=== PATIENT | female | born 1975 | race American Indian/Alaskan Native ===

== ENCOUNTER 2020-06-24 14:14 | Inpatient (IN) | payer OTHER, SELFPAY ==
--- NOTE | 2020-06-24 16:23 | Emergency Department Report ---
ED Shortness of Breath HPI - General Chief Complaint: Dyspnea/Respdistress Stated Complaint: HERACLIO Time Seen by Provider: 06/24/20 16:21 Source: patient Mode of arrival: Ambulatory Limitations: No Limitations - History of Present Illness Initial Comments: This is a 45-year-old female who ran out of her Lasix. She states that she has been short of breath on exertion. She has experienced PND and orthopnea. He does not complain of chest pain. She denies fever chills or significant cough. She denies chest pain. She has had progressive symptoms over the last few days. Apparently the patient has a nonischemic cardiomyopathy. I do not think she britt s had recent cardiology follow-up. According to the records cardiology recommended LifeVest placement however the patient refused to stay in the hospital thereof. Judging from her previous EF she would be a candidate for an AICD. Previous hospitalization in 2019 indicated: Hospital course: 44-year-old female patient with no significant past medical history , not on any medications was admitted through emergency room with worsening shortness of breath of one-week duration, patient admitted, appropriately managed, work-up is consistent with cardiomyopathy, EF of 15 to 20%, cardiology evaluated, started ischemia work-up, had stress test which was abnormal with ischemia, scheduled for heart cath next day. Cardiac cath showed normal coronary arteries. Cardiology recommended LifeVest placement however patient refused to stay in the hospital to wait for LifeVest. Cardiology recommended to discharge patient and to follow-up outpatient for LifeVest placement as a bridge to to possible eventual ICD. Patient was then discharged home in stable condition with outpatient follow-up. 02/17; patient's shortness of breath significantly improved Optimizing heart failure medications, cardiology planning stress test when stable Hypokalemia, KCl given 02/18; patient feels slightly better, electrolytes normal range Hypotension, adjust antihypertensives. 02/19; scheduled for stress test tomorrow, n.p.o. midnight If negative and patient stable patient may be discharged home 02/20;s/p stress test, abnormal, recommend heart cath tomorrow 02/21: Coronary angiogram showed normal coronaries, patient refused to stay in the hospital for LifeVest. Discharge home with outpatient follow-up. Discharge diagnosis and management: --Cardiomyopathy; EF 15 to 20% New onset CHF with systolic dysfunction, Stress test abnormal, cardiac cath showed normal coronaries Cardiology recommended LifeVest but patient refused to stay in the hospital Recommended to further follow-up as an outpatient --Hypotension; blood pressures in the lower range Closely monitored, adjusted antihypertensives --Acute systolic congestive heart failure /cardiomyopathy ejection fraction 15 to 20%, unknown etiology Continue IV diuretics, beta-blockers, LAUREN inhibitors, Discontinued spironolactone for hyperkalemia Managed with input output monitoring, Low-sodium diet, fluid restriction Cardiology was following --Hypokalemia; replaced - Related Data Previous Rx's Medication Instructions Recorded Last Taken Type Aspirin EC [Halfprin EC] 81 mg PO QDAY #30 tablet 02/22/20 Unknown Rx Furosemide [Lasix TAB] 40 mg PO QDAY #30 tablet 02/22/20 Unknown Rx Pantoprazole [Protonix TAB] 40 mg PO QDAY #30 tablet 02/22/20 Unknown Rx carvediloL [Coreg] 3.125 mg PO BID #60 tablet 02/22/20 Unknown Rx lisinopriL [Zestril TAB] 2.5 mg PO QDAY #30 tablet 02/22/20 Unknown Rx Allergies Allergy/AdvReac Type Severity Reaction Status Date / Time No Known Allergies Allergy Unverified 02/16/20 05:08 ED Review of Systems ROS: Stated complaint: HERACLIO Other details as noted in HPI ED Past Medical Hx - Past Medical History Previous Medical History?: Yes Hx Congestive Heart Failure: Yes - Surgical History Past Surgical History?: Yes Additional Surgical History: wrist surgery, elbow surgery - Social History Smoking Status: Current Every Day Smoker - Medications Home Medications: Home Medications Medication Instructions Recorded Confirmed Last Taken Type Aspirin EC [Halfprin EC] 81 mg PO QDAY #30 tablet 02/22/20 Unknown Rx Furosemide [Lasix TAB] 40 mg PO QDAY #30 tablet 02/22/20 Unknown Rx Pantoprazole [Protonix TAB] 40 mg PO QDAY #30 tablet 02/22/20 Unknown Rx carvediloL [Coreg] 3.125 mg PO BID #60 tablet 02/22/20 Unknown Rx lisinopriL [Zestril TAB] 2.5 mg PO QDAY #30 tablet 02/22/20 Unknown Rx ED Physical Exam - General Limitations: No Limitations ED Course Vital Signs 06/24/20 06/24/20 06/24/20 14:35 18:01 18:14 Temperature 98.5 F Pulse Rate 109 H 96 H Respiratory 20 50 H Rate Blood Pressure 156/102 Blood Pressure 161/101 [Right] O2 Sat by Pulse 98 99 Oximetry - Reevaluation(s) Reevaluation #1: Patient complains of increasing shortness of breath. She was a bit pale and sweaty. She had the application of Nitropaste. 06/24/20 18:44 06/24/20 18:46 I have changed the patient's status to IMCU. I am going to give her additional Lasix as well. ED Medical Decision Making - Lab Data Result diagrams: 06/24/20 16:05 06/24/20 17:56 Laboratory Results - last 24 hr 06/24/20 06/24/20 06/24/20 16:05 16:05 16:05 WBC 8.2 RBC 4.00 Hgb 12.2 Hct 35.9 MCV 90 MCH 30 MCHC 34 RDW 19.1 H Plt Count 279 Lymph % (Auto) 28.7 [place] % (Auto) 7.8 H Eos % (Auto) 2.1 Baso % (Auto) 0.8 Lymph # (Auto) 2.4 [place] # (Auto) 0.6 Eos # (Auto) 0.2 Baso # (Auto) 0.1 Seg Neutrophils % 60.6 Seg Neutrophils # 5.0 Sodium 138 Potassium 4.2 Chloride 104.6 Carbon Dioxide 22 Anion Gap 16 BUN 12 Creatinine 0.7 Estimated GFR > 60 BUN/Creatinine Ratio 17 Glucose 96 Calcium 9.4 Total Bilirubin 0.40 AST 64 H ALT 34 Alkaline Phosphatase 96 NT-Pro-B Natriuret Pep 2899 H Total Protein 6.9 Albumin 4.1 Albumin/Globulin Ratio 1.5 - EKG Data -: EKG Interpreted by Pr EKG shows normal: sinus rhythm (Ectopic atrial rhythm), axis, intervals, QRS complexes, ST-T waves Rate: normal - EKG Data Interpretation: no acute changes Critical care attestation.: If time is entered above; I have spent that time in minutes in the direct care of this critically ill patient, excluding procedure time. ED Disposition Clinical Impression: Person under investigation for COVID-19 Congestive heart failure Qualifiers: Heart failure type: combined systolic and diastolic Heart failure chronicity: acute on chronic Qualified Code(s): I50.43 - Acute on chronic combined systolic (congestive) and diastolic (congestive) heart failure Cardiomyopathy Qualifiers: Cardiomyopathy type: unspecified Qualified Code(s): I42.9 - Cardiomyopathy, unspecified Pneumonia Qualifiers: Pneumonia type: due to unspecified organism Laterality: unspecified laterality Lung location: unspecified part of lung Qualified Code(s): J18.9 - Pneumonia, unspecified organism Disposition: OP ADMIT IP TO THIS HOSP Is pt being admited?: Yes Does the pt Need Aspirin: Yes Condition: Stable Time of Disposition: 19:27
[2020-06-24 16:30] LABS: Basophils # (Auto) 0.1 K/mm3 (0.0-0.1); Basophils % (Auto) 0.8 % (0.0-1.8); Eosinophils # (Auto) 0.2 K/mm3 (0.0-0.4); Eosinophils % (Auto) 2.1 % (0.0-4.3); Hematocrit 35.9 % (30.3-42.9); Hemoglobin 12.2 gm/dl (10.1-14.3); Lymphocytes # (Auto) 2.4 K/mm3 (1.2-5.4); Lymphocytes % (Auto) 28.7 % (13.4-35.0); Mean Corpuscular HGB Conc 34 % (30-34); Mean Corpuscular Volume 90 fl (79-97); Monocytes # (Auto) 0.6 K/mm3 (0.0-0.8); Monocytes % (Auto) 7.8 % (0.0-7.3); Platelet Count 279 K/mm3 (140-440); Red Cell Distribution Width 19.1 % (13.2-15.2)
--- NOTE | 2020-06-24 16:36 | XRay Report ---
CHEST PA AND LATERAL VIEWS INDICATION: SOB. COMPARISON: 02/18/2020 FINDINGS: Support devices: None Heart: Enlarged but stable Lungs/Pleura: Interstitial disease has improved. There is now somewhat patchy, less prominent parench ymal disease throughout both upper lungs. In addition, there Is now more focal parenchymal disease in the right lower lung, thought to be in the right lower lobe. Appearance is worrisome for developing pneumonia, and continued follow-up is certainly recommended. IMPRESSION: 1. Possible developing right lower lobe pneumonia. Suggest continued follow-up. Signer Name: Luis Miguel Sahu MD Signed: 06/24/2020 4:31 PM Workstation Name: [id number]
[2020-06-24 16:38] LABS: Alanine Aminotransferase 34 units/L (7-56); Albumin 4.1 g/dL (3.9-5); Blood Urea Nitrogen 12 mg/dL (7-17); Calcium 9.4 mg/dL (8.4-10.2); Hemolysis Index 6
[2020-06-24 16:46] LABS: BUN/Creatinine Ratio 17
[2020-06-24] MEDS ORDERED: FUROSEMIDE 40 MG/4 ML INJ IV ONE ×2 (17:26→18:47)
[2020-06-24] MEDS ORDERED: FUROSEMIDE 40 MG/4 ML INJ ONE ×2 (18:00→20:27)
[2020-06-24] MEDS ORDERED: AZITHROMYCIN 500 MG in SODIUM CHLORIDE 0.9% 250ML 250 ML IV ONE (18:00)
[2020-06-24] MEDS ORDERED: NITROGLYCERIN 2% OINT 1 GM TP ONE (18:29)
[2020-06-24] MEDS: NITROGLYCERIN 2% OINT 1 GM TP SCH (18:33)
[2020-06-24] MEDS ORDERED: POTASSIUM CHLORIDE ER 20 MEQ TAB PO ONE ×2 (18:47→20:26)
[2020-06-24 18:51] LABS: INR 1.13 (0.87-1.13); Partial Thromboplastin Time 27.3 Sec. (24.2-36.6)
[2020-06-24 18:52] LABS: ABG Base Excess -5.5 mmol/L (-2.0-3.0); ABG HCO3 17.6 mmol/L (20.0-26.0); ABG Methemoglobin 0.4 % (0.0-1.5); ABG Oxygen Saturation 94.2 % (95.0-99.0); ABG PCO2 28.1 mm Hg; ABG PH 7.416 pH Units (7.350-7.450); ABG PO2 68.8 mm Hg (80.0-90.0)
[2020-06-24 18:55] LABS: Creatine Kinase MB 1.1 ng/mL (0.0-4.0)
[2020-06-24 18:57] LABS: C-Reactive Protein 1.2 mg/dL (0.00-1.30)
[2020-06-24] MEDS ORDERED: ASPIRIN 325 MG TAB PO SCH (20:00)
[2020-06-24] MEDS ORDERED: ASPIRIN 325 MG TAB ONE (20:26)
[2020-06-24] MEDS ORDERED: ONDANSETRON 4 MG/2 ML INJ IV PRN ×2 (23:52→23:58)
[2020-06-24] MEDS ORDERED: ACETAMINOPHEN 325 MG TAB PO PRN ×2 (23:52→23:58)
[2020-06-24] MEDS ORDERED: HYDROmorphone 1 MG/1 ML INJ IV PRN (23:52)
--- NOTE | 2020-06-24 23:56 | History and Physical Report ---
History of Present Illness Date of examination: 06/24/20 Date of admission: 06/24/20 17:53 Chief complaint: Shortness of breath for 5 to 7 days History of present illness: 45-year-old male with history of nonischemic cardiomyopathy recently diagnosed in February 18 currently comes in for increasing shortness of breath of 1 week duration. Patient has orthopnea. Patient is not taking her Lasix. No follow- up with cardiology or PCP recently. Patient was advised LifeVest cannula in the last visit and patient refused left the hospital. Patient LV ejection fraction of 15 to 20%. Cardiac cath was negative. Patient has class IV NYHA symptoms. Orthopnea present. No PND attacks. No chest pain. No exposure to coronavirus. No fever. No cough. From the previous discharge summary patient is a candidate for LifeVest/AICD Hospital course: 02/16/2020 44-year-old female patient with no significant past medical history , not on any medications was admitted through emergency room with worsening shortness of breath of one-week duration, patient admitted, appropriately managed, work-up is consistent with cardiomyopathy, EF of 15 to 20%, cardiology evaluated, started ischemia work-up, had stress test which was abnormal with ischemia, scheduled for heart cath next day. Cardiac cath showed normal coronary arteries. Cardiology recommended LifeVest placement however patient refused to stay in the hospital to wait for LifeVest. Cardiology recommended to discharge patient and to follow-up outpatient for LifeVest placement as a bridge to to possible eventual ICD. Patient was then discharged home in stable condition with outpatient follow-up. 02/17; patient's shortness of breath significantly improved Optimizing heart failure medications, cardiology planning stress test when stable Hypokalemia, KCl given 02/18; patient feels slightly better, electrolytes normal range Hypotension, adjust antihypertensives. 02/19; scheduled for stress test tomorrow, n.p.o. midnight If negative and patient stable patient may be discharged home 02/20;s/p stress test, abnormal, recommend heart cath tomorrow 02/21: Coronary angiogram showed normal coronaries, patient refused to stay in the hospital for LifeVest. Discharge home with outpatient follow-up. Discharge diagnosis and management: --Cardiomyopathy; EF 15 to 20% New onset CHF with systolic dysfunction, Stress test abnormal, cardiac cath showed normal coronaries Cardiology recommended LifeVest but patient refused to stay in the hospital Recommended to further follow-up as an outpatient --Hypotension; blood pressures in the lower range Closely monitored, adjusted antihypertensives --Acute systolic congestive heart failure /cardiomyopathy ejection fraction 15 to 20%, unknown etiology Continue IV diuretics, beta-blockers, LAUREN inhibitors, Discontinued spironolactone for hyperkalemia Managed with input output monitoring, Low-sodium diet, fluid restriction Cardiology was following --Hypokalemia; replaced - Past Medical History Previous Medical History?: Yes Hx Congestive Heart Failure: Yes - Surgical History Past Surgical History?: Yes Additional Surgical History: wrist surgery, elbow surgery - Social History Smoking Status: Current Every Day Smoker -FH Htn - Medications Home Medications: Home Medications Medication Instructions Recorded Confirmed Last Taken Type Aspirin EC [Halfprin EC] 81 mg PO QDAY #30 tablet 02/22/20 Unknown Rx Furosemide [Lasix TAB] 40 mg PO QDAY #30 tablet 02/22/20 Unknown Rx Pantoprazole [Protonix TAB] 40 mg PO QDAY #30 tablet 02/22/20 Unknown Rx carvediloL [Coreg] 3.125 mg PO BID #60 tablet 02/22/20 Unknown Rx lisinopriL [Zestril TAB] 2.5 mg PO QDAY #30 tablet 02/22/20 Unknown Rx Review of Systems ROS: Constitutional no weight loss or weight gain no fever or chills HEENT no sore throat no post nasal drip no diplopia Neck no neck stiffness no lymph gland enlargement Chest and lungs /cvs shortness of breath on minimal exertion and orthopnea GI no nausea no vomiting no diarrhea Genitourinary system no dysuria no flank pain Musculoskeletal system no muscle pains no joint pains [employer] no syncope no seizures Skin no rash no itching Psychiatric no depression no homicidal or suicidal tendencies Hematologic no lymphedema or bruising Endocrine no polydipsia no polyuria no cold intolerance no heat intolerance Medications and Allergies Allergies Allergy/AdvReac Type Severity Reaction Status Date / Time No Known Allergies Allergy Unverified 02/16/20 05:08 Home Medications Medication Instructions Recorded Confirmed Last Taken Type Aspirin EC [Halfprin EC] 81 mg PO QDAY #30 tablet 02/22/20 06/24/20 Unknown Rx Furosemide [Lasix TAB] 40 mg PO QDAY #30 tablet 02/22/20 06/24/20 Unknown Rx Pantoprazole [Protonix TAB] 40 mg PO QDAY #30 tablet 02/22/20 06/24/20 Unknown Rx carvediloL [Coreg] 3.125 mg PO BID #60 tablet 02/22/20 06/24/20 Unknown Rx lisinopriL [Zestril TAB] 2.5 mg PO QDAY #30 tablet 02/22/20 06/24/20 Unknown Rx Active Meds: Active Medications Aspirin (Aspirin) 325 mg PO QDAY [facility] Last Admin: 06/24/20 20:00 Dose: 325 mg Documented by: Nitroglycerin (Nitro-Bid 2%) 1 inch [facility]; Protocol Last Admin: 06/24/20 18:33 Dose: 1 inch Documented by: Exam - Constitutional Vitals: Temp Pulse Resp BP Pulse Ox 98 F 90 20 140/94 100 06/24/20 23:35 06/24/20 23:35 06/24/20 23:35 06/24/20 23:35 06/24/20 23:35 General appearance: Present: no acute distress, mild distress, well-nourished - EENT Eyes: Present: PERRL ENT: hearing intact, clear oral mucosa - Neck Neck: Present: supple, normal ROM - Respiratory Respiratory effort: normal Respiratory: bilateral: CTA, rales - Cardiovascular Heart rate: 88 Rhythm: regular Heart Sounds: Present: S1 & S2. Absent: rub, click - Extremities Extremities: no ischemia, pulses symmetrical, No edema Peripheral Pulses: within normal limits - Abdominal General gastrointestinal: Present: soft, non-tender, non-distended, normal bowel sounds Female genitourinary: Present: normal - Integumentary Integumentary: Present: clear, warm, dry - Musculoskeletal Musculoskeletal: gait normal, strength equal bilaterally - Psychiatric Psychiatric: appropriate mood/affect, intact judgment & insight - Neurologic Neurologic: CNII-XII intact, moves all extremities - Allied Health Allied health notes reviewed: nursing, case management HEART Score - HEART Score History: Moderately suspicious Age: < 45 Risk factors: 1-2 risk factors Troponin: Troponin T < 0.010 ng/mL (0.00-0.029) 06/24/20 17:56 Troponin: < normal limit - Critical Actions Critical Actions: 4-6 pts:12-16.6% risk of adverse cardiac event. Should be admitted Results - Labs CBC & Chem 7: 06/24/20 16:05 06/25/20 00:28 Labs: Laboratory Last Values WBC 8.2 K/mm3 (4.5-11.0) 06/24/20 16:05 RBC 4.00 M/mm3 (3.65-5.03) 06/24/20 16:05 Hgb 12.2 gm/dl (10.1-14.3) 06/24/20 16:05 Hct 35.9 % (30.3-42.9) 06/24/20 16:05 MCV 90 fl (79-97) 06/24/20 16:05 MCH 30 pg (28-32) 06/24/20 16:05 MCHC 34 % (30-34) 06/24/20 16:05 RDW 19.1 % (13.2-15.2) H 06/24/20 16:05 Plt Count 279 K/mm3 (140-440) 06/24/20 16:05 Lymph % (Auto) 28.7 % (13.4-35.0) 06/24/20 16:05 [place] % (Auto) 7.8 % (0.0-7.3) H 06/24/20 16:05 Eos % (Auto) 2.1 % (0.0-4.3) 06/24/20 16:05 Baso % (Auto) 0.8 % (0.0-1.8) 06/24/20 16:05 Lymph # (Auto) 2.4 K/mm3 (1.2-5.4) 06/24/20 16:05 [place] # (Auto) 0.6 K/mm3 (0.0-0.8) 06/24/20 16:05 Eos # (Auto) 0.2 K/mm3 (0.0-0.4) 06/24/20 16:05 Baso # (Auto) 0.1 K/mm3 (0.0-0.1) 06/24/20 16:05 Seg Neutrophils % 60.6 % (40.0-70.0) 06/24/20 16:05 Seg Neutrophils # 5.0 K/mm3 (1.8-7.7) 06/24/20 16:05 PT 14.6 Sec. (12.2-14.9) 06/24/20 17:56 INR 1.13 (0.87-1.13) 06/24/20 17:56 APTT 27.3 Sec. (24.2-36.6) 06/24/20 17:56 D-Dimer 611.02 ng/mlDDU (0-234) H 06/24/20 17:56 ABG pH 7.416 pH Units (7.350-7.450) 06/24/20 18:35 ABG pCO2 28.1 mm Hg 06/24/20 18:35 ABG pO2 68.8 mm Hg (80.0-90.0) L 06/24/20 18:35 ABG HCO3 17.6 mmol/L (20.0-26.0) L 06/24/20 18:35 ABG O2 Saturation 94.2 % (95.0-99.0) L 06/24/20 18:35 ABG O2 Content 17.1 (0.0-44) 06/24/20 18:35 ABG Base Excess -5.5 mmol/L (-2.0-3.0) L 06/24/20 18:35 ABG Hemoglobin 13.2 gm/dl (12.0-16.0) 06/24/20 18:35 ABG Carboxyhemoglobin 1.7 % (0.0-5.0) 06/24/20 18:35 ABG Methemoglobin 0.4 % (0.0-1.5) 06/24/20 18:35 Oxyhemoglobin 92.2 % (95.0-99.0) L 06/24/20 18:35 FiO2 36 % 06/24/20 18:35 Sodium 138 mmol/L (137-145) 06/24/20 16:05 Potassium 4.2 mmol/L (3.6-5.0) 06/24/20 16:05 Chloride 104.6 mmol/L (98-107) 06/24/20 16:05 Carbon Dioxide 22 mmol/L (22-30) 06/24/20 16:05 Anion Gap 16 mmol/L 06/24/20 16:05 BUN 12 mg/dL (7-17) 06/24/20 16:05 Creatinine 0.7 mg/dL (0.6-1.2) 06/24/20 16:05 Estimated GFR > 60 ml/min 06/24/20 16:05 BUN/Creatinine Ratio 17 % 06/24/20 16:05 Glucose 91 mg/dL (65-100) 06/24/20 17:56 Lactic Acid 1.40 mmol/L (0.7-2.0) 06/24/20 17:56 Calcium 9.4 mg/dL (8.4-10.2) 06/24/20 16:05 Ferritin 37.7 ng/mL (10.0-200.0) 06/24/20 17:56 Total Bilirubin 0.40 mg/dL (0.1-1.2) 06/24/20 16:05 AST 64 units/L (5-40) H 06/24/20 16:05 ALT 34 units/L (7-56) 06/24/20 16:05 Alkaline Phosphatase 96 units/L (35-129) 06/24/20 16:05 Lactate Dehydrogenase 272 units/L (91-180) H 06/24/20 17:56 Total Creatine Kinase 58 units/L (30-135) 06/24/20 17:56 CK-MB (CK-2) 1.1 ng/mL (0.0-4.0) 06/24/20 17:56 CK-MB (CK-2) Rel Index 1.8 (0-4) 06/24/20 17:56 Troponin T < 0.010 ng/mL (0.00-0.029) 06/24/20 17:56 C-Reactive Protein 1.20 mg/dL (0.00-1.30) 06/24/20 17:56 NT-Pro-B Natriuret Pep 2899 pg/mL (0-450) H 06/24/20 16:05 Total Protein 6.9 g/dL (6.3-8.2) 06/24/20 16:05 Albumin 4.1 g/dL (3.9-5) 06/24/20 16:05 Albumin/Globulin Ratio 1.5 % 06/24/20 16:05 Short CBC 06/24/20 Range/Units 16:05 WBC 8.2 (4.5-11.0) K/mm3 Hgb 12.2 (10.1-14.3) gm/dl Hct 35.9 (30.3-42.9) % Plt Count 279 (140-440) K/mm3 BMP 06/24/20 06/24/20 06/25/20 16:05 17:56 00:28 Sodium 138 Potassium 4.2 Chloride 104.6 Carbon Dioxide 22 BUN 12 Creatinine 0.7 Glucose 96 91 120 H Calcium 9.4 Cardiac Enzymes 06/24/20 Range/Units 17:56 Total Creatine Kinase 58 (30-135) units/L CK-MB (CK-2) 1.1 (0.0-4.0) ng/mL Troponin T < 0.010 (0.00-0.029) ng/mL Liver Function 06/24/20 Range/Units 16:05 Total Bilirubin 0.40 (0.1-1.2) mg/dL AST 64 H (5-40) units/L ALT 34 (7-56) units/L Alkaline Phosphatase 96 (35-129) units/L Albumin 4.1 (3.9-5) g/dL Microbiology: Microbiology 06/24/20 17:56 Peripheral/Venous Blood Culture - Preliminary Culture in Progress 06/24/20 17:56 Peripheral/Venous Blood Culture - Preliminary Culture in Progress - Imaging and Cardiology EKG: report reviewed Chest x-ray: report reviewed Imaging and Cardiology: cxr IMPRESSION: 1. Possible developing right lower lobe pneumonia. Suggest continued follow-up. Zimmerman/IV: IV Catheter Type [Right INT / Saline Lock Antecubital] Assessment and Plan Advance Directives: Yes (Full code) VTE prophylaxis?: Chemical (Full code) Plan of care discussed with patient/family: Yes - Patient Problems (1) Acute respiratory failure with hypoxia Current Visit: Yes Status: Acute (2) Acute exacerbation of CHF (congestive heart failure) Current Visit: Yes Status: Acute Qualifiers: Heart failure type: systolic Qualified Code(s): I50.23 - Acute on chronic systolic (congestive) heart failure Plan to address problem: Patient with acute CHF secondary to noncompliance. Patient has not been taking her Lasix for the last couple of weeks. Daily weights Daily intake and output chart Cardiology consult Echocardiogram was not ordered because it was done recently. IV Lasix every 12 40 mg each time. Patient is a candidate for LifeVest/AICD (3) Person under investigation for COVID-19 Current Visit: Yes Status: Acute Plan to address problem: Coronavirus PCR requested. (4) Pneumonia Current Visit: Yes Status: Acute Qualifiers: Pneumonia type: due to unspecified organism Laterality: unspecified laterality Lung location: unspecified part of lung Qualified Code(s): J18.9 - Pneumonia, unspecified organism Plan to address problem: Right lower lobe pneumonia unlikely Possible vascular congestion in the right lower lobe Coronavirus PCR requested Empiric antibiotic started work to be discontinued if coronavirus PCR is negative and pro calcitonin level is normal (5) Hypertension Current Visit: Yes Status: Chronic Qualifiers: Hypertension type: essential hypertension Qualified Code(s): I10 - Essential (primary) hypertension Plan to address problem: Continue antihypertensives and adjust medications as necessary (6) Hyperkalemia Current Visit: Yes Status: Acute Plan to address problem: Mild Should correct with Lasix (7) Hyponatremia Current Visit: Yes Status: Acute Plan to address problem: Secondary to fluid overload (8) DVT prophylaxis Current Visit: Yes Status: Acute Plan to address problem: On heparin and GI prophylaxis
[2020-06-25] MEDS ORDERED: ACETAMINOPHEN 325 MG TAB PO PRN (00:05)
[2020-06-25] MEDS ORDERED: ONDANSETRON 4 MG/2 ML INJ IV PRN (00:05)
[2020-06-25] MEDS ORDERED: carvediloL 3.125 MG TAB ONE (00:16)
[2020-06-25] MEDS ORDERED: POTASSIUM CHLORIDE ER 20 MEQ TAB PO ONE (00:17)
[2020-06-25] MEDS: carvediloL 3.125 MG TAB PO SCH ×3 (00:30→22:21)
[2020-06-25] MEDS: POTASSIUM CHLORIDE ER 20 MEQ TAB PO SCH ×2 (00:31→10:10)
[2020-06-25] MEDS ORDERED: oxyCODONE /ACETAMINOPHEN 5-325MG TAB ONE (00:34)
[2020-06-25] MEDS: oxyCODONE /ACETAMINOPHEN 5-325MG TAB PO PRN ×3 (00:36→22:30)
[2020-06-25 01:20] LABS: C-Reactive Protein 1.9 mg/dL (0.00-1.30)
[2020-06-25] MEDS: dexAMETHasone 4 MG/ML VIAL IV SCH ×2 (02:05→22:20)
[2020-06-25] MEDS: NITROGLYCERIN 2% OINT 1 GM TP SCH ×2 (05:27→12:44)
[2020-06-25] MEDS ORDERED: FUROSEMIDE 40 MG/4 ML INJ IV SCH (06:00)
[2020-06-25] MEDS ORDERED: AZITHROMYCIN 500 MG in SODIUM CHLORIDE 0.9% 250ML 250 ML IV SCH (10:00)
[2020-06-25] MEDS: FAMOTIDINE 20 MG TAB PO SCH ×2 (10:10→22:20)
[2020-06-25] MEDS: PANTOPRAZOLE 40 MG TAB PO SCH (10:10)
[2020-06-25] MEDS: ASPIRIN EC 81 MG TAB PO SCH (10:10)
[2020-06-25] MEDS: cefTRIAXone/NS 2 GM/100 ML 2 GM/100 ML BAG IV SCH (10:11)
[2020-06-25] MEDS: LISINOPRIL 5 MG TAB PO SCH (10:18)
--- NOTE | 2020-06-25 15:03 | Consultation ---
History of Present Illness Consult date: 06/25/20 Consult reason: congestive heart failure History of present illness: The patient is a 45-year-old woman with a history of a dilated nonischemic cardiomyopathy, systolic left ventricular dysfunction. Heart failure diagnosis was made in this hospital 3 months ago. At that time a cardiac catheterization demonstrated angiographically normal coronary arteries, and the left ventricular ejection fraction of approximately 20%. The patient was recommended for guideline directed medical therapy and outpatient cardiac follow-up. She admits to noncompliance with cardiac follow-up since her hospital discharge over 3 months ago. She does state that she has been taking her guideline directed medical prescriptions with refills over the past several months, except for the last few days when she ran out of her furosemide. She presents to the hospital at this time with cough and shortness of breath. She was evaluated in the emergency room and referred for admission. Cardiology consultation was requested for further evaluation of her congestive heart failure. My interpretation of the patient's chest x-ray shows cardiomegaly consistent with her dilated cardiomyopathy, but there is no significant interstitial edema. Instead, there is a right lower lobe consolidation consistent with likely acute pneumonia. ECG is normal sinus rhythm, left ventricular hypertrophy by voltage criteria, but no ischemic ST or T wave abnormalities. Past History Past Medical History: heart failure Medications and Allergies Allergies Allergy/AdvReac Type Severity Reaction Status Date / Time No Known Allergies Allergy Unverified 02/16/20 05:08 Home Medications Medication Instructions Recorded Confirmed Last Taken Type Aspirin EC [Halfprin EC] 81 mg PO QDAY #30 tablet 02/22/20 06/24/20 Unknown Rx Furosemide [Lasix TAB] 40 mg PO QDAY #30 tablet 02/22/20 06/24/20 Unknown Rx Pantoprazole [Protonix TAB] 40 mg PO QDAY #30 tablet 02/22/20 06/24/20 Unknown Rx carvediloL [Coreg] 3.125 mg PO BID #60 tablet 02/22/20 06/24/20 Unknown Rx lisinopriL [Zestril TAB] 2.5 mg PO QDAY #30 tablet 02/22/20 06/24/20 Unknown Rx Active Meds: Active Medications Acetaminophen (Tylenol) 650 mg PO Q4H PRN PRN Reason: Pain MILD(1-3)/Fever >100.5/VILLARREAL Aspirin (Halfprin Ec) 81 mg PO QDAY SANCHEZ Last Admin: 10/25/20 10:10 Dose: 81 mg Documented by: Carvedilol (Coreg) 3.125 mg PO BID [facility] Last Admin: 06/25/20 10:18 Dose: 3.125 mg Documented by: Dexamethasone (Decadron) 4 mg IV Q24HR@2200 [facility] Last Admin: 06/25/20 02:05 Dose: 4 mg Documented by: Famotidine (Pepcid) 20 mg PO BID [facility] Last Admin: 06/25/20 10:10 Dose: 20 mg Documented by: Furosemide (Lasix) 40 mg IV 0600,1800 [facility] Last Admin: 06/25/20 05:27 Dose: 40 mg Documented by: Hydromorphone HCl (Dilaudid) 0.5 mg IV Q3H PRN PRN Reason: Pain , Severe (7-10) Ceftriaxone Sodium (Rocephin/Ns 2 Gm/100 Ml) 2 gm in 100 mls @ 200 mls/hr IV Q24HR [facility]; Protocol Last Admin: 06/25/20 10:11 Dose: 200 mls/hr Documented by: Azithromycin 500 mg/ Sodium (Chloride) 250 mls @ 250 mls/hr IV Q24HR [facility]; Protocol Last Admin: 06/25/20 10:27 Dose: 250 mls/hr Documented by: Lisinopril (Zestril) 2.5 mg PO QDAY [facility] Last Admin: 06/25/20 10:18 Dose: 2.5 mg Documented by: Nitroglycerin (Nitro-Bid 2%) 1 inch TP TIDNTG [facility]; Protocol Last Admin: 06/25/20 12:44 Dose: Not Given Documented by: Ondansetron HCl (Zofran) 4 mg IV Q8H PRN PRN Reason: Nausea And Vomiting Oxycodone/Acetaminophen (Percocet 5/325) 1 tab PO Q6H PRN PRN Reason: Pain, Moderate (4-6) Last Admin: 06/25/20 10:10 Dose: 1 tab Documented by: Pantoprazole Sodium (Protonix) 40 mg PO QDAY [facility] Last Admin: 06/25/20 10:10 Dose: 40 mg Documented by: Potassium Chloride (K-Dur) 20 meq PO Q12HR [facility] Last Admin: 06/25/20 10:10 Dose: 20 meq Documented by: Sodium Chloride (Sodium Chloride Flush Syringe 10 Ml) 10 ml IV BID [facility] Last Admin: 06/25/20 10:11 Dose: 10 ml Documented by: Sodium Chloride (Sodium Chloride Flush Syringe 10 Ml) 10 ml IV PRN PRN PRN Reason: LINE FLUSH Review of Systems Cardiovascular: shortness of breath, no chest pain, no orthopnea, no palpitations, no rapid/irregular heart beat, no edema, no syncope, no lightheadedness Physical Examination Vital Signs Temp Pulse Resp BP Pulse Ox 98.5 F 109 H 20 156/102 98 06/24/20 14:35 06/24/20 14:35 06/24/20 14:35 06/24/20 14:35 06/24/20 14:35 General appearance: no acute distress HEENT: Positive: PERRL Neck: Positive: neck supple Cardiac: Positive: Reg Rate and Rhythm Lungs: Positive: Decreased Breath Sounds Neuro: Positive: Grossly Intact Abdomen: Positive: Soft Female genitourinary: deferred Skin: Positive: Clear Extremities: Absent: edema Results 06/24/20 16:05 06/25/20 00:28 Cardiac Enzymes 06/24/20 06/24/20 06/24/20 Range/Units 16:05 17:56 17:56 AST 64 H (5-40) units/L Lactate Dehydrogenase 272 H (91-180) units/L CK-MB (CK-2) 1.1 (0.0-4.0) ng/mL 06/25/20 Range/Units 00:28 AST (5-40) units/L Lactate Dehydrogenase 268 H (91-180) units/L CK-MB (CK-2) (0.0-4.0) ng/mL Coagulation 06/24/20 Range/Units 17:56 PT 14.6 (12.2-14.9) Sec. INR 1.13 (0.87-1.13) APTT 27.3 (24.2-36.6) Sec. CBC 06/24/20 Range/Units 16:05 WBC 8.2 (4.5-11.0) K/mm3 RBC 4.00 (3.65-5.03) M/mm3 Hgb 12.2 (10.1-14.3) gm/dl Hct 35.9 (30.3-42.9) % Plt Count 279 (140-440) K/mm3 Lymph # (Auto) 2.4 (1.2-5.4) K/mm3 Forest # (Auto) 0.6 (0.0-0.8) K/mm3 Eos # (Auto) 0.2 (0.0-0.4) K/mm3 Baso # (Auto) 0.1 (0.0-0.1) K/mm3 Comprehensive Metabolic Panel 06/24/20 06/24/20 06/25/20 Range/Units 16:05 17:56 00:28 Sodium 138 (137-145) mmol/L Potassium 4.2 (3.6-5.0) mmol/L Chloride 104.6 (98-107) mmol/L Carbon Dioxide 22 (22-30) mmol/L BUN 12 (7-17) mg/dL Creatinine 0.7 (0.6-1.2) mg/dL Glucose 96 91 120 H (65-100) mg/dL Calcium 9.4 (8.4-10.2) mg/dL AST 64 H (5-40) units/L ALT 34 (7-56) units/L Alkaline Phosphatase 96 (35-129) units/L Total Protein 6.9 (6.3-8.2) g/dL Albumin 4.1 (3.9-5) g/dL EKG interpretations - Telemetry EKG Rhythm: Sinus Rhythm Assessment and Plan - Patient Problems (1) Shortness of breath Current Visit: Yes Status: Acute Plan to address problem: Patient presents with shortness of breath and the right lower lobe infiltrate, consistent with an acute pneumonia. Will defer to internal medicine and pulmonary for further management, including an assessment of her COVID-19 status. (2) Cardiomyopathy Current Visit: Yes Status: Acute Qualifiers: Cardiomyopathy type: unspecified Qualified Code(s): I42.9 - Cardiomyopathy, unspecified Plan to address problem: Patient has a known dilated nonischemic cardiomyopathy currently no evidence of volume overload or heart failure. We will continue guideline directed medical therapy including afterload agents and beta-blockers. No further cardiac intervention is indicated at this time with a presentation of a right lower lobe pneumonia.
[2020-06-25] MEDS: SPIRONOLACTONE 25 MG TAB PO SCH (18:44)
--- NOTE | 2020-06-25 21:07 | Progress Note ---
Assessment and Plan - Patient Problems (1) Acute respiratory failure with hypoxia Current Visit: Yes Status: Acute Plan to address problem: Patient is off oxygen (2) Acute exacerbation of CHF (congestive heart failure) Current Visit: Yes Status: Acute Qualifiers: Heart failure type: systolic Qualified Code(s): I50.23 - Acute on chronic systolic (congestive) heart failure Plan to address problem: Patient with acute CHF secondary to noncompliance. Patient has not been taking her Lasix for the last couple of weeks. Daily weights Daily intake and output chart Cardiology consult Echocardiogram was not ordered because it was done recently. IV Lasix every 12 40 mg every 12 hours Patient is a candidate for LifeVest/AICD (3) Person under investigation for COVID-19 Current Visit: Yes Status: Acute Plan to address problem: Coronavirus PCR negative (4) Pneumonia Current Visit: Yes Status: Acute Qualifiers: Pneumonia type: due to unspecified organism Laterality: unspecified laterality Lung location: unspecified part of lung Qualified Code(s): J18.9 - Pneumonia, unspecified organism Plan to address problem: Right lower lobe pneumonia unlikely Possible vascular congestion in the right lower lobe Coronavirus PCR requested Empiric antibiotic started work to be discontinued if coronavirus PCR is negative and pro calcitonin level is normal (5) Hypertension Current Visit: Yes Status: Chronic Qualifiers: Hypertension type: essential hypertension Qualified Code(s): I10 - Essential (primary) hypertension Plan to address problem: Continue antihypertensives and adjust medications as necessary (6) Hyperkalemia Current Visit: Yes Status: Acute Plan to address problem: Mild Should correct with Lasix (7) Hyponatremia Current Visit: Yes Status: Acute Plan to address problem: Secondary to fluid overload (8) DVT prophylaxis Current Visit: Yes Status: Acute Plan to address problem: On heparin and GI prophylaxis Subjective Date of service: 06/25/20 Principal diagnosis: CHF exacerbation, NICM Interval history: 45-year-old male with history of nonischemic cardiomyopathy recently diagnosed in February 18 currently comes in for increasing shortness of breath of 1 week duration. Patient has orthopnea. Patient is not taking her Lasix. No follow- up with cardiology or PCP recently. Patient was advised LifeVest cannula in the last visit and patient refused left the hospital. Patient LV ejection fraction of 15 to 20%. Cardiac cath was negative. Patient has class IV NYHA symptoms. Orthopnea present. No PND attacks. No chest pain. No exposure to coronavirus. No fever. No cough. From the previous discharge summary patient is a candidate for LifeVest/AICD 06/25/2020 Patient symptomatically better Cardiology consult appreciated Patient counseled about compliance and follow-up with cardiology Objective - Constitutional Vitals: Vital Signs - 12hr 06/25/20 06/25/20 06/25/20 09:30 10:18 11:24 Temperature 98.1 F Pulse Rate 82 96 H Respiratory 24 Rate Respiratory Rate [ Generalized] Blood Pressure 119/80 100/71 O2 Sat by Pulse 96 98 Oximetry 06/25/20 06/25/20 06/25/20 12:44 15:47 18:44 Temperature 98.3 F Pulse Rate 96 H 82 82 Respiratory 16 Rate Respiratory Rate [ Generalized] Blood Pressure 100/71 125/77 125/77 O2 Sat by Pulse 99 Oximetry 06/25/20 19:53 Temperature Pulse Rate Respiratory Rate Respiratory 17 Rate [ Generalized] Blood Pressure O2 Sat by Pulse Oximetry General appearance: Present: no acute distress, well-nourished - EENT Eyes: PERRL, EOM intact ENT: hearing intact, clear oral mucosa Ears: bilateral: normal - Neck Neck: supple, normal ROM - Respiratory Respiratory effort: normal Respiratory: bilateral: CTA - Breasts Breasts: normal - Cardiovascular Heart rate: 78 Rhythm: regular Heart Sounds: Present: S1 & S2. Absent: gallop, rub Extremities: pulses intact, No edema, normal color, Full ROM - Gastrointestinal General gastrointestinal: Present: soft, non-tender, non-distended, normal bowel sounds - Genitourinary Female genitourinary: normal - Integumentary Integumentary: clear, warm, dry - Musculoskeletal Musculoskeletal: 1, strength equal bilaterally - Neurologic Neurologic: moves all extremities - Psychiatric Psychiatric: memory intact, appropriate mood/affect, intact judgment & insight - Labs CBC & Chem 7: 06/24/20 16:05 06/25/20 00:28 Labs: Abnormal lab results 06/25/20 06/25/20 Range/Units 00:28 00:28 D-Dimer 692.18 H (0-234) ng/mlDDU Glucose 120 H (65-100) mg/dL Lactate Dehydrogenase 268 H (91-180) units/L C-Reactive Protein 1.90 H (0.00-1.30) mg/dL HEART Score - HEART Score Age: < 45 Risk factors: 1-2 risk factors Troponin: Troponin T < 0.010 ng/mL (0.00-0.029) 06/24/20 17:56 Troponin: < normal limit - Critical Actions Critical Actions: 4-6 pts:12-16.6% risk of adverse cardiac event. Should be admitted
[2020-06-26] MEDS ORDERED: AZITHROMYCIN 250 MG TAB PO SCH (10:00)
[2020-06-26] MEDS ORDERED: FUROSEMIDE 20 MG TAB PO SCH (10:00)
[2020-06-26] MEDS ORDERED: DEXAMETHASONE 4 MG TAB PO SCH ×2 (10:00→16:00)
[2020-06-26] MEDS: carvediloL 3.125 MG TAB PO SCH (10:52)
[2020-06-26] MEDS: ASPIRIN EC 81 MG TAB PO SCH (10:53)
[2020-06-26] MEDS: PANTOPRAZOLE 40 MG TAB PO SCH (10:53)
[2020-06-26] MEDS: cefTRIAXone/NS 2 GM/100 ML 2 GM/100 ML BAG IV SCH (10:54)
[2020-06-26] MEDS: FAMOTIDINE 20 MG TAB PO SCH (10:54)
[2020-06-26] MEDS: SPIRONOLACTONE 25 MG TAB PO SCH (10:55)
[2020-06-26] MEDS: LISINOPRIL 5 MG TAB PO SCH (10:55)
--- NOTE | 2020-06-26 11:39 | Progress Note ---
Assessment and Plan Pneumonia negative for COVID 19 Hx of Dilated Nonischemic Cardiomyopathy 01/2020 C - agiographically normal coronary arteries, and the left ventricular ejection fraction of approximately 20%. Th Hypertension Noncompliance with medications and outpatient cardiac follow up Recommendations: Advised sodium/fluid restrictions. Continue medical therapy for systolic heart failure. Otherwise, conservative cardiac management. Subjective Date of service: 06/26/20 Interval history: Patient is resting in bed comfortably. She denies shortness of breath. There is no lower extremity edema. Objective Vital Signs Temp Pulse Resp Resp BP Pulse Ox 06/26/20 10:55 83 117/83 06/26/20 10:52 83 117/83 06/26/20 10:00 96 06/26/20 04:42 98.3 F 85 18 118/79 100 06/25/20 23:30 16 06/25/20 22:30 16 06/25/20 22:21 98 H 125/82 06/25/20 22:09 98.8 F 98 H 16 125/82 100 06/25/20 19:53 17 06/25/20 18:44 82 125/77 06/25/20 15:47 98.3 F 82 16 125/77 99 06/25/20 12:44 96 H 100/71 - Physical Examination General: No Apparent Distress HEENT: Positive: PERRL Neck: Positive: neck supple Cardiac: Positive: Reg Rate and Rhythm Lungs: Positive: Decreased Breath Sounds Neuro: Positive: Grossly Intact Abdomen: Positive: Soft Extremities: Absent: edema
[2020-06-26 14:00] VITALS: BP 129/89
[2020-06-26] MEDS: oxyCODONE /ACETAMINOPHEN 5-325MG TAB PO PRN (17:54)
--- NOTE | 2020-06-26 19:00 | Discharge Summary ---
Providers - Providers Date of Admission: 06/24/20 17:53 Date of discharge: 06/26/20 Attending physician: IMMANUEL CERVANTES 06/25/20 08:58 Consult to Physician [CONS] Routine Comment: Consulting Provider: NADER SANDY Physician Instructions: Reason For Exam: CHF exacerbation Primary care physician: [employer] Hospitalization Condition: Stable Hospital course: Assessment and Plan Advance Directives: Yes (Full code) VTE prophylaxis?: Chemical (Full code) Plan of care discussed with patient/family: Yes - Patient Problems (1) Acute respiratory failure with hypoxia Current Visit: Yes Status: Acute (2) Acute exacerbation of CHF (congestive heart failure) Current Visit: Yes Status: Acute Qualifiers: Heart failure type: systolic Qualified Code(s): I50.23 - Acute on chronic systolic (congestive) heart failure Plan to address problem: Patient with acute CHF secondary to noncompliance. Patient has not been taking her Lasix for the last couple of weeks. Daily weights Daily intake and output chart Cardiology consult Echocardiogram was not ordered because it was done recently. IV Lasix every 12 40 mg each time. Patient is a candidate for LifeVest/AICD (3) Person under investigation for COVID-19 Current Visit: Yes Status: Acute Plan to address problem: Coronavirus PCR negative (4) Pneumonia Current Visit: Yes Status: Acute Qualifiers: Pneumonia type: due to unspecified organism Laterality: unspecified laterality Lung location: unspecified part of lung Qualified Code(s): J18.9 - Pneumonia, unspecified organism Plan to address problem: Patient will be discharged on oral Levaquin (5) Hypertension Current Visit: Yes Status: Chronic Qualifiers: Hypertension type: essential hypertension Qualified Code(s): I10 - Essential (primary) hypertension Plan to address problem: Continue antihypertensives and adjust medications as necessary (6) Hyperkalemia Current Visit: Yes Status: Acute Plan to address problem: Corrected (7) Hyponatremia Corrected (8) AICD /LifeVest Follow-up with cardiology Disposition: TO HOME OR SELFCARE - Discharge Diagnoses (1) Acute respiratory failure with hypoxia Status: Acute (2) Acute exacerbation of CHF (congestive heart failure) Status: Acute Qualifiers: Heart failure type: systolic Qualified Code(s): I50.23 - Acute on chronic systolic (congestive) heart failure (3) Person under investigation for COVID-19 Status: Acute (4) Pneumonia Status: Acute Qualifiers: Pneumonia type: due to unspecified organism Laterality: unspecified laterality Lung location: unspecified part of lung Qualified Code(s): J18.9 - Pneumonia, unspecified organism (5) Hypertension Status: Chronic Qualifiers: Hypertension type: essential hypertension Qualified Code(s): I10 - Essential (primary) hypertension (6) Hyperkalemia Status: Acute (7) Hyponatremia Status: Acute (8) DVT prophylaxis Status: Acute Core Measure Documentation - Palliative Care Palliative Care/ Comfort Measures: Not Applicable - Core Measures Any of the following diagnoses?: none Exam - Constitutional Vitals: Temp Pulse Resp BP Pulse Ox 98.5 F 88 19 129/89 100 06/26/20 13:15 06/26/20 13:15 06/26/20 13:15 06/26/20 13:15 06/26/20 13:15 General appearance: Present: no acute distress, well-nourished - EENT Eyes: Present: PERRL ENT: hearing intact, clear oral mucosa - Neck Neck: Present: supple, normal ROM - Respiratory Respiratory effort: normal Respiratory: bilateral: CTA - Cardiovascular Heart rate: 78 Rhythm: regular Heart Sounds: Present: S1 & S2. Absent: rub, click - Extremities Extremities: no ischemia, pulses intact, pulses symmetrical, No edema Peripheral Pulses: within normal limits - Abdominal General gastrointestinal: Present: soft, non-tender, non-distended, normal bowel sounds Female genitourinary: Present: normal - Rectal Rectal Exam: deferred - Integumentary Integumentary: Present: clear, warm, dry - Musculoskeletal Musculoskeletal: gait normal, strength equal bilaterally - Psychiatric Psychiatric: appropriate mood/affect, intact judgment & insight - Neurologic Neurologic: CNII-XII intact, moves all extremities - Allied Health Allied health notes reviewed: nursing, case management Plan Activity: no restrictions Diet: low salt Follow up with: DILIP JUÁREZ MD [Primary Care Provider] - 7 Days NADER SANDY MD [Staff Physician] - 7 Days
== END 2020-06-26 20:50 | disposition home or self-care (01) | DRG 193 ==
LOC: ED 14:14 → 3A 17:53 → IMCU 19:54 → 3A 06-25 00:05
PROVIDERS: ADMIT Internal Medicine; ATTEND Internal Medicine
PROC: 4A033R1 Measurement of Arterial Saturation, Peripheral, Percutaneous Approach (ICD-10-PCS; principal; 2020-06-24)
DX: J18.9 Pneumonia, unspecified organism (principal); J96.01 Acute respiratory failure with hypoxia; I50.43 Acute on chronic combined systolic (congestive) and diastolic (congestive) heart failure; E87.1 Hypo-osmolality and hyponatremia; I42.8 Other cardiomyopathies; I11.0 Hypertensive heart disease with heart failure; Z20.828 Contact with and (suspected) exposure to other viral communicable diseases; F17.200 Nicotine dependence, unspecified, uncomplicated; Z82.49 Family history of ischemic heart disease and other diseases of the circulatory system; Z91.19 Patient's noncompliance with other medical treatment and regimen; E87.5 Hyperkalemia; Z95.810 Presence of automatic (implantable) cardiac defibrillator
CPT/HCPCS: 36415; 36600; 71046; 80053; 82140; 82550; 82553; 82728; 82803; 82947; 83036; 83615; 83880; 84145; 84484; 85025; 85379; 85610; 85730; 86140; 87040; 87641; 93005; 96365; 96375; 99406; G0378; J0456; J0696; J1100; J1940; J7050; J8540; U0003

== ENCOUNTER 2021-08-14 08:12 | Emergency (ER) | payer SELFPAY ==
[2021-08-14] MEDS ORDERED: FUROSEMIDE 40 MG/4 ML INJ IV ONE (08:35)
--- NOTE | 2021-08-14 08:39 | Emergency Department Report ---
ED Shortness of Breath HPI - General Chief Complaint: Dyspnea/Respdistress Stated Complaint: SOB Time Seen by Provider: 08/14/21 08:30 Source: patient Mode of arrival: Ambulatory Limitations: No Limitations - History of Present Illness Initial Comments: Patient is 46 years old female with history of congestive heart failure and hypertension. Patient presented to the ER complaining of several day history of shortness of breath. Patient stated that she is out of her Lasix for the last few days. She stated that she does not have a primary care physician. Patient denied any chest pain, fever, cough or chills. MD Complaint: shortness of breath -: days(s) (3) Known History Of: congestive heart failure Context: recent URI Associated Symptoms: denies other symptoms Treatments Prior to Arrival: none - Related Data Previous Rx's Medication Instructions Recorded Last Taken Type Aspirin EC [Halfprin EC] 81 mg PO QDAY #30 tablet 06/26/20 Unknown Rx Furosemide [Lasix TAB] 40 mg PO BID #60 tablet 06/26/20 Unknown Rx Pantoprazole [Protonix TAB] 40 mg PO QDAY 30 Days #30 tablet 06/26/20 Unknown Rx Potassium Chloride [K-Dur] 20 meq PO QDAY 30 Days #30 tablet 06/26/20 Unknown Rx Spironolactone [Aldactone] 25 mg PO QDAY #30 tablet 06/26/20 Unknown Rx carvediloL [Coreg] 3.125 mg PO BID #60 tablet 06/26/20 Unknown Rx lisinopriL [Zestril TAB] 2.5 mg PO QDAY #30 tablet 06/26/20 Unknown Rx Allergies Allergy/AdvReac Type Severity Reaction Status Date / Time No Known Allergies Allergy Unverified 02/16/20 05:08 ED Review of Systems ROS: Stated complaint: SOB Other details as noted in HPI Comment: All other systems reviewed and negative Constitutional: denies: chills, fever Respiratory: orthopnea, shortness of breath, SOB with exertion, SOB at rest. denies: cough, wheezing Cardiovascular: denies: chest pain, palpitations Gastrointestinal: denies: abdominal pain, nausea, vomiting Neurological: denies: headache, weakness, numbness, paresthesias ED Past Medical Hx - Past Medical History Hx Congestive Heart Failure: Yes - Surgical History Additional Surgical History: wrist surgery, elbow surgery - Social History Smoking Status: Current Some Day Smoker - Medications Home Medications: Home Medications Medication Instructions Recorded Confirmed Last Taken Type Aspirin EC [Halfprin EC] 81 mg PO QDAY #30 tablet 06/26/20 Unknown Rx Furosemide [Lasix TAB] 40 mg PO BID #60 tablet 06/26/20 Unknown Rx Pantoprazole [Protonix TAB] 40 mg PO QDAY 30 Days #30 tablet 06/26/20 Unknown Rx Potassium Chloride [K-Dur] 20 meq PO QDAY 30 Days #30 tablet 06/26/20 Unknown Rx Spironolactone [Aldactone] 25 mg PO QDAY #30 tablet 06/26/20 Unknown Rx carvediloL [Coreg] 3.125 mg PO BID #60 tablet 06/26/20 Unknown Rx lisinopriL [Zestril TAB] 2.5 mg PO QDAY #30 tablet 06/26/20 Unknown Rx ED Physical Exam - General Limitations: No Limitations General appearance: alert, in no apparent distress - Head Head exam: Present: atraumatic, normocephalic, normal inspection - Eye Eye exam: Present: normal appearance, PERRL - ENT ENT exam: Present: normal exam, normal orophraynx, mucous membranes moist - Neck Neck exam: Present: normal inspection, full ROM. Absent: tenderness, meningismus - Respiratory Respiratory exam: Present: normal lung sounds bilaterally - Cardiovascular Cardiovascular Exam: Present: regular rate, normal rhythm, normal heart sounds - GI/Abdominal GI/Abdominal exam: Present: soft, normal bowel sounds. Absent: distended, tenderness, guarding, rebound, rigid, organomegaly, mass, bruit, pulsatile mass, hernia - Extremities Exam Extremities exam: Present: normal inspection, full ROM, normal capillary refill. Absent: tenderness, pedal edema, calf tenderness - Back Exam Back exam: Present: normal inspection, full ROM. Absent: CVA tenderness (R), CVA tenderness (L) - Neurological Exam Neurological exam: Present: alert, oriented X3, CN II-XII intact, normal gait, reflexes normal. Absent: motor sensory deficit - Psychiatric Psychiatric exam: Present: normal mood - Skin Skin exam: Present: warm, intact, normal color ED Course Vital Signs 08/14/21 09:24 Pulse Rate 92 H Respiratory 29 H Rate Blood Pressure 149/98 [Left] O2 Sat by Pulse 99 Oximetry ED Medical Decision Making - Lab Data Result diagrams: 08/14/21 09:15 08/14/21 09:15 - EKG Data -: EKG Interpreted by Me EKG shows normal: sinus rhythm Rate: normal - EKG Data Interpretation: no acute changes - Radiology Data Radiology results: report reviewed - Medical Decision Making Patient is 46 years old female with history of congestive heart failure and hypertension. Patient presented to the ER complaining of several day history of shortness of breath. Patient stated that she is out of her Lasix for the last few days. She stated that she does not have a primary care physician. Patient denied any chest pain, fever, cough or chills. Patient remained stable in the ER with a stable vital sign. Chest x-ray showed mild pulmonary edema. Labs reviewed and is unremarkable including a negative troponin however BNP is more than 2000. Patient received Lasix 40 mg IV and stated that her symptom is much better. Refilled her furosemide 40 mg and carvedilol, lisinopril and advised the patient to follow-up with her primary doc tor in the next 2 to 3 days and to return to the ER she develop any new symptoms. Critical care attestation.: If time is entered above; I have spent that time in minutes in the direct care of this critically ill patient, excluding procedure time. ED Disposition Clinical Impression: Acute exacerbation of CHF (congestive heart failure) Disposition: 01 HOME / SELF CARE / HOMELESS Is pt being admited?: No Condition: Stable Instructions: Heart Failure, Diagnosis, [id number] Referrals: [facility] [Provider Group] - 3-5 Days
--- NOTE | 2021-08-14 08:58 | XRay Report ---
CHEST 1 VIEW INDICATION / CLINICAL INFORMATION: Dyspnea. COMPARISON: 06/24/2020. FINDINGS: SUPPORT DEVICES: None. HEART / MEDIASTINUM: Enlarged cardiac silhouette, but stable. LUNGS / PLEURA: Bilateral lower lobe predominant airspace disease. No pneumothorax. ADDITIONAL FINDINGS: No significant additional findings. IMPRESSION: Bilateral lower lobe predominant airspace disease. The appearance may represent infection versus ashtyn a. Stable enlarged cardiac silhouette. Signer Name: Pantera Kennedy MD Signed: 08/14/2021 8:54 AM Workstation Name: [id number]
[2021-08-14 09:28] VITALS: BP 149/98
[2021-08-14 10:10] LABS: Eosinophils # (Auto) 0.1 K/mm3 (0.0-0.4); Eosinophils % (Auto) 0.9 % (0.0-4.3); Hematocrit 39.2 % (30.3-42.9); Lymphocytes # (Auto) 1.8 K/mm3 (1.2-5.4); Lymphocytes % (Auto) 29.5 % (13.4-35.0); Mean Corpuscular HGB Conc 33 % (30-34); Mean Corpuscular Volume 94 fl (79-97); Monocytes # (Auto) 0.5 K/mm3 (0.0-0.8); Monocytes % (Auto) 7.5 % (0.0-7.3); Platelet Count 247 K/mm3 (140-440); Red Blood Count 4.18 M/mm3 (3.65-5.03)
[2021-08-14 10:26] LABS: Blood Urea Nitrogen 11 mg/dL (7-17); Calcium 9.2 mg/dL (8.4-10.2); Hemolysis Index 110
[2021-08-14 10:27] LABS: BUN/Creatinine Ratio 18
--- NOTE | 2021-08-15 12:21 | Electrocardiograph Report ---
[facility] Test Date: 2021-08-14 Test Time: 09:48:07 Pat Name: SHEBA PAEZ Department: Room: Gender: F [employer]: MERI : 1975 Requested By: KHUSHBOO BARCENAS Order Number: [id number] Reading MD: Jose Daniel Williamson Measurements Intervals [place] Rate: 83 P: 13 WY: 189 QRS: 33 QRSD: 94 T: 1 QT: 399 QTc: 470 Interpretive Statements Sinus rhythm nonspecific st-t No previous ECG available for comparison Electronically Signed On 08-15-2021 12:20:31 EST by Jose Daniel Williamson
== END 2021-08-14 10:57 | disposition home or self-care (01) ==
LOC: ED 08:12
DX: I50.9 Heart failure, unspecified (principal); F17.200 Nicotine dependence, unspecified, uncomplicated; Z72.89 Other problems related to lifestyle; Z79.899 Other long term (current) drug therapy; Z79.82 Long term (current) use of aspirin
CPT/HCPCS: 36415; 71045; 80048; 83880; 84484; 85025; 93005; 96374; 99284; J1940